=== PATIENT | female | born 1990 | race Caucasian/White ===

== ENCOUNTER 2021-09-09 12:50 | Emergency (ER) | payer OTHER ==
[~2021-09-09] VITALS: Ht 167.6 cm; Wt 70.9 kg
[2021-09-09 13:15] VITALS: BP_SYST 133; BP_SYST 150; BP_DIAS 104; BP_DIAS 96
--- NOTE | 2021-09-09 14:00 | NUR ---
PT AMBULATED TO ER BED 5
--- NOTE | 2021-09-09 15:02 | NUR ---
PA BEST AT BEDSIDE EVALUATING PT
[2021-09-09] MEDS ORDERED: GUAI5LIQ PO (15:30)
[2021-09-09] MEDS ORDERED: OXYM15SP72 NS (15:30)
[2021-09-09] MEDS ORDERED: AMOX-999 PO (15:30)
[2021-09-09 15:41] VITALS: BP 131/82
--- NOTE | 2021-09-09 15:43 | NUR ---
Patient discharged with v/s stable. Written and verbal after care instructions given FOR UPPER RESPIRATORY INFECTION and explained. Patient alert, oriented and verbalized understanding of instructions. Ambulatory with steady gait. All questions addressed prior to discharge. ID band removed. Patient advised to follow up with PMD. Rx of AUGMENTIN, GUAIFENESIN, AND AFRIN given. Patient educated on indication of medication including possible reaction and side effects. Opportunity to ask questions provided and answered.
--- NOTE | 2021-09-09 15:44 | NUR ---
The patient's care was reviewed and supervised by Krys Fragoso RN.
== END 2021-09-09 15:43 | disposition home or self-care (01) ==
LOC: MED 12:50
DX: J06.9 Acute upper respiratory infection, unspecified (principal); F41.9 Anxiety disorder, unspecified; Z79.899 Other long term (current) drug therapy; Z79.2 Long term (current) use of antibiotics
CPT/HCPCS: 99283